=== PATIENT | female | born 1945 | race African-American/Black ===

== ENCOUNTER 2017-01-16 10:01 | Emergency (ER) | payer MEDICARE, OTHER ==
[~2017-01-16] VITALS: Ht 162.6 cm; Wt 65.0 kg
[~2017-01-16 10:01] MED LIST: AMBIEN PO; HYDR-523 PO; LASIX PO
[2017-01-16 10:20] LABS: BASOPHILS % 0.5 % (0.0-2.0); EOSINOPHILS % 0.1 % (0.0-5.0); HEMATOCRIT. 32.2 % (36.0-48.0); HEMOGLOBIN. 10.6 g/dL (12.0-16.0); LYMPHOCYTES % 19.3 % (20.0-50.0); MEAN CORPUSCULAR HEMOGLOBIN 31.1 pg (28.0-32.0); MEAN CORPUSCULAR HGB CONC 32.9 g/dL (31.0-37.0); MEAN CORPUSCULAR VOLUME 94.6 fL (81.0-99.0); MEAN PLATELET VOLUME 8.3 fl (7.4-10.4); MONOCYTES % 8.2 % (2.0-8.0); NEUTROPHILS % 71.9 % (40.0-76.0); PLATELET 147 x1000/uL (130-400); RED CELL DISTRIBUTION WIDTH 19.7 % (11.6-14.6); WHITE BLOOD COUNT 5.4 x1000/uL (4.5-11.0)
[2017-01-16 10:26] LABS: CHLORIDE 100 mEq/L (98-107); INDEX HEMOLYSI 1 (1-3); INDEX ICTERIC 1 (1-4); INDEX LIPEMIC 1 (1-3)
[2017-01-16 10:34] LABS: ALANINE AMINOTRANSFERASE 36 IU/L (13-61); ANION GAP 17; CARBON DIOXIDE 27 mEq/L (21-32); ETHANOL BLOOD < 10 mg/dL; LIPASE 102 IU/L (73-393); UREA NITROGEN BLOOD 7 mg/dL (7-21); eGFR > 60 mL/min (>60)
[2017-01-16] MEDS ORDERED: KETOROLAC 30MG/ML VIAL IV STA (10:50)
[2017-01-16] MEDS ORDERED: SODIUM CHLORIDE 0.9% 1,000 ML IV ONE (10:50)
[2017-01-16 11:12] LABS: CREATINE KINASE 43 IU/L (26-192); INDEX HEMOLYSI 1 (1-3)
[2017-01-16 15:12] VITALS: BP 148/95
== END 2017-01-16 16:11 | disposition home or self-care (01) ==
LOC: ER 10:02
DX: M48.56XA Collapsed vertebra, not elsewhere classified, lumbar region, initial encounter for fracture (principal); I10 Essential (primary) hypertension; Z91.018 Allergy to other foods; W01.0XXA Fall on same level from slipping, tripping and stumbling without subsequent striking against object, initial encounter; Y93.89 Activity, other specified; Y92.89 Other specified places as the place of occurrence of the external cause; Y99.8 Other external cause status
CPT/HCPCS: 36415; 80053; 82550; 83690; 85025; 96374; 99284; G0482; J1885; J7030

== ENCOUNTER 2017-01-28 23:24 | Emergency (ER) | payer MEDICARE, OTHER ==
[~2017-01-28] VITALS: Ht 172.7 cm; Wt 81.0 kg
[2017-01-29] MEDS ORDERED: HYDROCODONE/ACETAMINOPHEN 5/325MG TABLET PO ONE (01:30)
[2017-01-29 05:42] VITALS: BP 148/79
== END 2017-01-29 05:44 | disposition home or self-care (01) ==
LOC: ER 23:52
DX: M84.48XA Pathological fracture, other site, initial encounter for fracture (principal); I10 Essential (primary) hypertension
CPT/HCPCS: 99283

== ENCOUNTER 2017-04-04 00:51 | Inpatient (IN) | payer MEDICARE, OTHER ==
[~2017-04-04] VITALS: Ht 172.7 cm; Wt 66.2 kg
[~2017-04-04 00:51] MED LIST changes: +ASPI-1159 PO
[2017-04-04] MEDS ORDERED: IPRATROPIUM BROMIDE (0.02%) 0.5MG/2.5ML NEB HHN STA (02:54)
[2017-04-04] MEDS ORDERED: ALBUTEROL (0.083%) 2.5MG/3ML NEB HHN STA (02:54)
[2017-04-04] MEDS ORDERED: MORPHINE SULFATE 4 MG/ML CPJ (NOT FOR IM USE) IV STA (02:54)
[2017-04-04] MEDS ORDERED: ONDANSETRON HCL 4MG/2ML VIAL IV STA (02:54)
[2017-04-04] MEDS ORDERED: METHYLPREDNISOLONE SOD SUCC 125 MG/2 ML VIAL IV ONE (03:00)
[2017-04-04 03:19] LABS: BASOPHILS % 0.4 % (0.0-2.0); EOSINOPHILS % 0.1 % (0.0-5.0); HEMATOCRIT. 35.5 % (36.0-48.0); HEMOGLOBIN. 11.4 g/dL (12.0-16.0); LYMPHOCYTES % 13.1 % (20.0-50.0); MEAN CORPUSCULAR HEMOGLOBIN 27.9 pg (28.0-32.0); MEAN CORPUSCULAR VOLUME 86.7 fL (81.0-99.0); MEAN PLATELET VOLUME 8.6 fl (7.4-10.4); MONOCYTES % 3.9 % (2.0-8.0); NEUTROPHILS % 82.5 % (40.0-76.0); PLATELET 138 x1000/uL (130-400); RED CELL DISTRIBUTION WIDTH 16.8 % (11.6-14.6)
[2017-04-04 03:43] LABS: CARBON DIOXIDE 28 mEq/L (21-32); CHLORIDE 94 mEq/L (98-107); TROPONIN I < 0.02 ng/mL (0.00-0.04)
[2017-04-04] MEDS ORDERED: SODIUM CHLORIDE 0.9% 1,000 ML IV ONE (04:09)
[2017-04-04 08:00] VITALS: BP 129/74
[2017-04-04 08:46] VITALS: BP 129/74
[2017-04-04] MEDS ORDERED: CLONIDINE 0.1MG TABLET PO PRN (09:45)
[2017-04-04] MEDS ORDERED: METHYLPREDNISOLONE SOD SUCC 40 MG/ML VIAL IV SCH (09:45)
[2017-04-04] MEDS ORDERED: ONDANSETRON HCL 4MG/2ML VIAL IV PRN (09:45)
[2017-04-04 10:05] LABS: BG BASE EXCESS -5.4 mmol/L (-2.0-2.0); BG CARBOXYHEMOGLOBIN 0.3 % (0.5-1.5); BG DEOXYHEMOGLOBIN 1.9 % (0.0-5.0); BG HCO3 ACT 19.7 mmol/L (22.0-26.0); BG METHEMOGLOBIN 0.4 % (0.0-1.5); BG OXYGEN SATURATION 98.1 % (92.0-98.5); BG OXYHEMOGLOBIN 97.4 % (94.0-97.0); BG PCO2 36.8 mmHg (35.0-45.0); BG PH 7.346 (7.350-7.450); BG PO2 119.7 mmHg (75.0-100.0); BG SAMPLE SITE RIGHT RADIAL; BG TOTAL HEMOGLOBIN 12.5 g/dL (12.0-18.0); BG VENT MODE NASAL CANNULA
[2017-04-04] MEDS: HYDROCODONE/ACETAMINOPHEN 5/325MG TABLET PO PRN ×3 (10:13→21:00)
[2017-04-04] MEDS: ASPIRIN 325MG EC TABLET PO SCH (10:13)
[2017-04-04] MEDS: ENOXAPARIN 40MG/0.4ML SYR SUBCUT SCH (10:14)
[2017-04-04] MEDS: METOPROLOL TARTRATE 50MG TABLET PO SCH ×2 (10:14→20:57)
[2017-04-04 10:37] LABS: HEMATOCRIT. 37.4 % (36.0-48.0); HEMOGLOBIN. 11.8 g/dL (12.0-16.0); MEAN CORPUSCULAR HEMOGLOBIN 27.8 pg (28.0-32.0); MEAN CORPUSCULAR VOLUME 87.8 fL (81.0-99.0); MEAN PLATELET VOLUME 9.2 fl (7.4-10.4); PLATELET 142 x1000/uL (130-400); RED BLOOD CELL COUNT 4.26 mill/uL (4.2-5.4); RED CELL DISTRIBUTION WIDTH 17.4 % (11.6-14.6)
[2017-04-04 11:06] LABS: CARBON DIOXIDE 22 mEq/L (21-32); CHLORIDE 96 mEq/L (98-107); T4 FREE 1.11 ng/dL (0.76-1.46)
[2017-04-04 12:00] VITALS: BP 130/79
[2017-04-04] MEDS: IPRATROPIUM/ALBUTEROL 0.5-3(2.5)MG/3ML NEB INH SCH ×2 (12:14→21:42)
[2017-04-04 12:40] LABS: PLATELET ESTIMATE NORMAL
[2017-04-04] MEDS ORDERED: SODIUM CHLORIDE 0.9% 10ML VIAL ONE (13:24)
[2017-04-04] MEDS ORDERED: IOHEXOL-350 100 ML BOTTLE ONE (13:24)
[2017-04-04] MEDS ORDERED: POTASSIUM CHLORIDE 10MEQ TABLET SR PO NR (14:15)
[2017-04-04] MEDS: PANTOPRAZOLE 40MG DR TABLET PO SCH ×2 (14:20→20:56)
[2017-04-04] MEDS: SODIUM CHLORIDE 0.9% 1,000 ML IV SCH (14:21)
[2017-04-04 14:45] LABS: CREATINE KINASE 76 IU/L (26-192); CREATINE KINASE MB FRACTION 1.7 ng/mL (0.5-3.6); TROPONIN I < 0.02 ng/mL (0.00-0.04)
[2017-04-04] MEDS: LEVOFLOXACIN 500MG PREMIX 100 ML IV SCH (15:38)
[2017-04-04 16:00] VITALS: BP 127/85
[2017-04-04 20:00] VITALS: BP 148/90
[2017-04-04] MEDS: METHYLPREDNISOLONE SOD SUCC 40 MG/ML VIAL IV SCH (20:57)
[2017-04-04 22:16] LABS: CREATINE KINASE 83 IU/L (26-192); CREATINE KINASE MB FRACTION 1.9 ng/mL (0.5-3.6); TROPONIN I < 0.02 ng/mL (0.00-0.04)
[2017-04-05] VITALS: BP 123/83
[2017-04-05] MEDS: ACETAMINOPHEN 325MG TABLET PO PRN ×2 (00:04→15:24)
[2017-04-05] MEDS: TEMAZEPAM 15MG CAPSULE PO PRN ×2 (00:50→23:22)
[2017-04-05] MEDS: HYDROCODONE/ACETAMINOPHEN 5/325MG TABLET PO PRN ×4 (00:51→23:31)
[2017-04-05] MEDS: IPRATROPIUM/ALBUTEROL 0.5-3(2.5)MG/3ML NEB INH SCH ×4 (02:06→21:36)
[2017-04-05 04:00] VITALS: BP 122/73
[2017-04-05 06:12] LABS: HEMATOCRIT. 30.7 % (36.0-48.0); HEMOGLOBIN. 9.8 g/dL (12.0-16.0); MEAN CORPUSCULAR HEMOGLOBIN 27.6 pg (28.0-32.0); MEAN CORPUSCULAR VOLUME 86.9 fL (81.0-99.0); MEAN PLATELET VOLUME 9.7 fl (7.4-10.4); PLATELET 99 x1000/uL (130-400); RED BLOOD CELL COUNT 3.54 mill/uL (4.2-5.4); RED CELL DISTRIBUTION WIDTH 16.8 % (11.6-14.6)
[2017-04-05 06:44] LABS: CARBON DIOXIDE 30 mEq/L (21-32); CHLORIDE 100 mEq/L (98-107); HDL CHOLESTEROL 117 mg/dL (40-59); LDL CHOLESTEROL 45 mg/dL (5-100)
[2017-04-05 07:14] LABS: PLATELET ESTIMATE SLIGHTLY DECREASED
[2017-04-05 08:00] VITALS: BP 119/71
[2017-04-05] MEDS: ASPIRIN 325MG EC TABLET PO SCH (08:49)
[2017-04-05] MEDS: METHYLPREDNISOLONE SOD SUCC 40 MG/ML VIAL IV SCH (08:49)
[2017-04-05] MEDS: ENOXAPARIN 40MG/0.4ML SYR SUBCUT SCH (08:50)
[2017-04-05] MEDS: METOPROLOL TARTRATE 50MG TABLET PO SCH ×2 (08:50→20:51)
[2017-04-05] MEDS: PANTOPRAZOLE 40MG DR TABLET PO SCH (08:50)
[2017-04-05 12:00] VITALS: BP 125/81
[2017-04-05] MEDS: LEVOFLOXACIN 500MG PREMIX 100 ML IV SCH (15:24)
[2017-04-05 16:00] VITALS: BP 121/77
[2017-04-05] MEDS ORDERED: MAGNESIUM HYDROXIDE 400MG/5ML 30ML UDC PO NR (18:15)
[2017-04-05 20:00] VITALS: BP 142/83
[2017-04-05] MEDS: SODIUM CHLORIDE 0.9% 1,000 ML IV SCH (23:22)
[2017-04-06] VITALS: BP 117/64
[2017-04-06] MEDS: IPRATROPIUM/ALBUTEROL 0.5-3(2.5)MG/3ML NEB INH SCH ×2 (01:30→06:00)
[2017-04-06 04:00] VITALS: BP 127/87
[2017-04-06] MEDS: HYDROCODONE/ACETAMINOPHEN 5/325MG TABLET PO PRN ×2 (04:43→10:25)
[2017-04-06 06:21] LABS: BASOPHILS % 0.1 % (0.0-2.0); HEMATOCRIT. 31.1 % (36.0-48.0); HEMOGLOBIN. 9.8 g/dL (12.0-16.0); LYMPHOCYTES % 8.7 % (20.0-50.0); MEAN CORPUSCULAR HEMOGLOBIN 27.6 pg (28.0-32.0); MEAN CORPUSCULAR VOLUME 87.3 fL (81.0-99.0); MONOCYTES % 1.6 % (2.0-8.0); NEUTROPHILS % 89.6 % (40.0-76.0); PLATELET 75 x1000/uL (130-400); RED BLOOD CELL COUNT 3.56 mill/uL (4.2-5.4); RED CELL DISTRIBUTION WIDTH 16.8 % (11.6-14.6)
[2017-04-06 08:00] VITALS: BP 120/70
[2017-04-06] MEDS: METOPROLOL TARTRATE 50MG TABLET PO SCH (08:04)
[2017-04-06] MEDS: ASPIRIN 325MG EC TABLET PO SCH (08:04)
[2017-04-06] MEDS: ENOXAPARIN 40MG/0.4ML SYR SUBCUT SCH (08:05)
[2017-04-06] MEDS ORDERED: FAMOTIDINE 20MG TABLET PO SCH (09:00)
[2017-04-06] MEDS ORDERED: PREDNISONE 5MG TABLET PO SCH (09:00)
[2017-04-06 10:12] VITALS: BP 123/76
[2017-04-06 10:25] VITALS: BP 123/76
== END 2017-04-06 12:05 | disposition home or self-care (01) | DRG 189 ==
LOC: ER 00:51 → 7WST 04:11 → INTOOBSV 04:11 → OBSVTOIN 04:11 → EDBEDREQ 04:13 → EDBEDREQTM 04:13 → ENRESERV 07:00 → CANRESERV 07:00 → ENRESERV 07:22
PROVIDERS: ADMIT Internal Medicine; ATTEND Internal Medicine
DX: J96.90 Respiratory failure, unspecified, unspecified whether with hypoxia or hypercapnia (principal); J44.1 Chronic obstructive pulmonary disease with (acute) exacerbation; J84.89 Other specified interstitial pulmonary diseases; I10 Essential (primary) hypertension; I48.91 Unspecified atrial fibrillation; E04.2 Nontoxic multinodular goiter; K76.0 Fatty (change of) liver, not elsewhere classified; K22.2 Esophageal obstruction; Z87.891 Personal history of nicotine dependence
CPT/HCPCS: 36415; 36600; 71010; 71275; 80048; 80053; 80061; 82375; 82550; 82553; 82805; 83880; 84439; 84443; 84484; 85025; 93005; 93306; 94640; 94664; 96361; 96365; 96366; 96372; 96374; 96375; 96376; 99285; A4216; G0378; J1650; J1956; J2270; J2405; J2920; J2930; J7030; J7512; J7611; J7620; Q9967

== ENCOUNTER 2017-05-02 21:54 | Inpatient (IN) | payer MEDICARE, OTHER ==
[~2017-05-02] VITALS: Ht 172.7 cm; Wt 68.5 kg
[2017-05-02] MEDS ORDERED: METHYLPREDNISOLONE SOD SUCC 125 MG/2 ML VIAL IV STA (22:37)
[2017-05-02] MEDS ORDERED: SODIUM CHLORIDE 0.9% 500 ML IV ONE (22:37)
[2017-05-02] MEDS ORDERED: ONDANSETRON HCL 4MG/2ML VIAL IV STA (22:37)
[2017-05-02] MEDS ORDERED: MORPHINE SULFATE 4 MG/ML CPJ (NOT FOR IM USE) IV STA (22:37)
[2017-05-02] MEDS ORDERED: ASPIRIN 81MG TABLET PO STA (22:37)
[2017-05-02] MEDS ORDERED: IPRATROPIUM/ALBUTEROL 0.5-3(2.5)MG/3ML NEB HHN ONE (22:45)
[2017-05-02] MEDS ORDERED: LEVOFLOXACIN 750MG PREMIX 150 ML IV ONE (22:45)
[2017-05-02 23:09] LABS: BG BASE EXCESS -1.7 mmol/L (-2.0-2.0); BG CARBOXYHEMOGLOBIN 0.4 % (0.5-1.5); BG DEOXYHEMOGLOBIN 6.8 % (0.0-5.0); BG FRACTION INSPIRED OXYGEN 21; BG HCO3 ACT 23.4 mmol/L (22.0-26.0); BG METHEMOGLOBIN 0.4 % (0.0-1.5); BG OXYGEN SATURATION 93.1 % (92.0-98.5); BG OXYHEMOGLOBIN 92.4 % (94.0-97.0); BG PCO2 40.9 mmHg (35.0-45.0); BG PH 7.375 (7.350-7.450); BG PO2 73.6 mmHg (75.0-100.0); BG SAMPLE SITE LEFT RADIAL; BG TOTAL HEMOGLOBIN 11.9 g/dL (12.0-18.0); BG VENT MODE ROOM AIR
[2017-05-02 23:49] LABS: BASOPHILS % 0.1 % (0.0-2.0); HEMATOCRIT. 32.6 % (36.0-48.0); HEMOGLOBIN. 10.6 g/dL (12.0-16.0); LYMPHOCYTES % 8.1 % (20.0-50.0); MEAN CORPUSCULAR HEMOGLOBIN 29.4 pg (28.0-32.0); MEAN CORPUSCULAR VOLUME 89.9 fL (81.0-99.0); MEAN PLATELET VOLUME 9.7 fl (7.4-10.4); MONOCYTES % 2.7 % (2.0-8.0); NEUTROPHILS % 89.1 % (40.0-76.0); RED BLOOD CELL COUNT 3.62 mill/uL (4.2-5.4); RED CELL DISTRIBUTION WIDTH 22.2 % (11.6-14.6)
[2017-05-02 23:58] LABS: INR 1.1; PARTIAL THROMBOPLASTIN TIME 25.8 sec (24.0-34.0); PROTHROMBIN TIME 11.2 sec
[2017-05-03 00:03] LABS: PLATELET 35 x1000/uL (130-400)
[2017-05-03 00:09] LABS: CARBON DIOXIDE 23 mEq/L (21-32); CHLORIDE 96 mEq/L (98-107); CREATINE KINASE 35 IU/L (26-192); TROPONIN I < 0.02 ng/mL (0.00-0.04)
[2017-05-03 00:34] LABS: CLARITY URINE CLEAR (CLEAR); COLOR URINE YELLOW (YELLOW); KETONES URINE NEGATIVE (NEGATIVE); LEUKOCYTE ESTERASE URINE 2+ (NEGATIVE); NITRITE URINE NEGATIVE (NEGATIVE); OCCULT BLOOD URINE TRACE (NEGATIVE); PH URINE 5.5 (4.5-8.0); PROTEIN URINE NEGATIVE (NEGATIVE); UROBILINOGEN URINE 0.2 E.U./dL (0.2-1.0)
[2017-05-03] MEDS ORDERED: LORAZEPAM 2MG/ML CPJ IV ONE (01:00)
[2017-05-03] MEDS ORDERED: SODIUM CHLORIDE 0.9% 1,000 ML IV ONE (01:18)
[2017-05-03] MEDS: METHYLPREDNISOLONE SOD SUCC 40 MG/ML VIAL IV SCH ×3 (06:20→21:09)
[2017-05-03] MEDS: IPRATROPIUM/ALBUTEROL 0.5-3(2.5)MG/3ML NEB HHN SCH ×3 (07:29→21:19)
[2017-05-03] MEDS ORDERED: ENOXAPARIN 40MG/0.4ML SYR SUBCUT SCH (09:00)
[2017-05-03] MEDS: ACETAMINOPHEN 325MG TABLET PO PRN ×2 (09:57→19:50)
[2017-05-03 10:11] LABS: HEMOGLOBIN. 9.5 g/dL (12.0-16.0); MEAN CORPUSCULAR HEMOGLOBIN 29.2 pg (28.0-32.0); MEAN PLATELET VOLUME 10.1 fl (7.4-10.4); RED BLOOD CELL COUNT 3.26 mill/uL (4.2-5.4); RED CELL DISTRIBUTION WIDTH 21.6 % (11.6-14.6)
[2017-05-03 10:26] LABS: PLATELET 29 x1000/uL (130-400)
[2017-05-03 10:38] LABS: CARBON DIOXIDE 21 mEq/L (21-32); CHLORIDE 101 mEq/L (98-107)
[2017-05-03 14:16] LABS: PLATELET ESTIMATE MARKEDLY DECREASED
[2017-05-03] MEDS ORDERED: NITROGLYCERIN 0.4MG TABLET SL SL PRN (15:00)
[2017-05-03] MEDS: ONDANSETRON HCL 4MG/2ML VIAL IV PRN ×2 (16:00→23:35)
[2017-05-03] MEDS: CARVEDILOL 6.25 MG TABLET PO SCH (21:00)
[2017-05-03] MEDS: LEVOFLOXACIN 500MG PREMIX 100 ML IV SCH (21:22)
[2017-05-04] MEDS: ACETAMINOPHEN 325MG TABLET PO PRN ×2 (01:49→23:16)
[2017-05-04] MEDS: IPRATROPIUM/ALBUTEROL 0.5-3(2.5)MG/3ML NEB HHN SCH ×4 (02:46→20:18)
[2017-05-04] MEDS: METHYLPREDNISOLONE SOD SUCC 40 MG/ML VIAL IV SCH ×3 (05:54→21:33)
[2017-05-04 07:16] LABS: HEMATOCRIT. 30.4 % (36.0-48.0); HEMOGLOBIN. 9.8 g/dL (12.0-16.0); MEAN CORPUSCULAR HEMOGLOBIN 29.1 pg (28.0-32.0); MEAN PLATELET VOLUME 10.6 fl (7.4-10.4); RED BLOOD CELL COUNT 3.38 mill/uL (4.2-5.4)
[2017-05-04 07:30] LABS: PLATELET 35 x1000/uL (130-400)
[2017-05-04 08:55] LABS: NUCLEATED RED BLOOD CELLS 1 /100 WBC; PLATELET ESTIMATE MARKEDLY DECREASED
[2017-05-04] MEDS: CARVEDILOL 6.25 MG TABLET PO SCH ×2 (09:13→21:33)
[2017-05-04] MEDS ORDERED: HYDROCODONE/ACETAMINOPHEN 5/325MG TABLET PO NR (10:15)
[2017-05-04 12:10] LABS: T4 FREE 1.27 ng/dL (0.76-1.46)
[2017-05-04 12:25] LABS: HEPATITIS B SURFACE ANTIGEN NEGATIVE
[2017-05-04 12:53] LABS: HEPATITIS B CORE AB IGM NEGATIVE
[2017-05-04 12:54] LABS: HEPATITIS A AB IGM NEGATIVE (NEGATIVE)
[2017-05-04] MEDS ORDERED: LACTULOSE 20G/30ML UDC PO PRN (21:00)
[2017-05-04] MEDS: LORAZEPAM 0.5MG TABLET PO PRN (21:33)
[2017-05-04] MEDS: LEVOFLOXACIN 500MG PREMIX 100 ML IV SCH (21:36)
[2017-05-05] MEDS: IPRATROPIUM/ALBUTEROL 0.5-3(2.5)MG/3ML NEB HHN SCH ×4 (02:32→21:09)
[2017-05-05] MEDS: METHYLPREDNISOLONE SOD SUCC 40 MG/ML VIAL IV SCH ×3 (06:06→22:26)
[2017-05-05 07:08] LABS: HEMATOCRIT. 28.7 % (36.0-48.0); HEMOGLOBIN. 9.6 g/dL (12.0-16.0); MEAN CORPUSCULAR HEMOGLOBIN 29.7 pg (28.0-32.0); MEAN CORPUSCULAR VOLUME 88.7 fL (81.0-99.0); MEAN PLATELET VOLUME 10.2 fl (7.4-10.4); RED BLOOD CELL COUNT 3.23 mill/uL (4.2-5.4); RED CELL DISTRIBUTION WIDTH 22.5 % (11.6-14.6)
[2017-05-05 07:37] LABS: PLATELET 31 x1000/uL (130-400)
[2017-05-05] MEDS: CARVEDILOL 6.25 MG TABLET PO SCH ×2 (08:06→21:11)
[2017-05-05 09:39] LABS: CARBON DIOXIDE 29 mEq/L (21-32); CHLORIDE 97 mEq/L (98-107)
[2017-05-05] MEDS: ACETAMINOPHEN 325MG TABLET PO PRN ×3 (09:39→22:24)
[2017-05-05] MEDS ORDERED: IOHEXOL-350 100 ML BOTTLE ONE (13:56)
[2017-05-05] MEDS ORDERED: SODIUM CHLORIDE 0.9% 10ML VIAL ONE (13:56)
[2017-05-05] MEDS ORDERED: LEVOFLOXACIN 500MG TABLET PO SCH (21:00)
[2017-05-05] MEDS: LORAZEPAM 0.5MG TABLET PO PRN (21:16)
[2017-05-05 22:51] LABS: PLATELET ESTIMATE MARKEDLY DECREASED
[2017-05-06] MEDS: IPRATROPIUM/ALBUTEROL 0.5-3(2.5)MG/3ML NEB HHN SCH ×3 (00:43→14:03)
[2017-05-06] MEDS: METHYLPREDNISOLONE SOD SUCC 40 MG/ML VIAL IV SCH ×2 (05:38→13:30)
[2017-05-06] MEDS: ACETAMINOPHEN 325MG TABLET PO PRN ×2 (05:38→13:34)
[2017-05-06] MEDS: CARVEDILOL 6.25 MG TABLET PO SCH (08:22)
[2017-05-06 10:04] LABS: HEMOGLOBIN. 9.7 g/dL (12.0-16.0); MEAN CORPUSCULAR VOLUME 89.5 fL (81.0-99.0); MEAN PLATELET VOLUME 10.7 fl (7.4-10.4); RED BLOOD CELL COUNT 3.35 mill/uL (4.2-5.4); RED CELL DISTRIBUTION WIDTH 23.1 % (11.6-14.6)
[2017-05-06 12:29] VITALS: BP 123/73
[2017-05-06 13:06] LABS: PLATELET ESTIMATE MARKEDLY DECREASED
[2017-05-06 13:07] LABS: PLATELET 41 x1000/uL (130-400)
[2017-05-07 13:07] LABS: ANTI-NUCLEAR ANTIBODIES DIRECT Negative (Negative)
[2017-05-08 08:19] LABS: DRVVT LA 32.5 sec (0.0-47.0); LUPUS ANTICOAG INTERPRETATION Comment: (.)
[2017-05-08 17:07] LABS: HLA CLASS 1 ANTIBODY Positive (Negative); IIb/IIIa ANTIBODY Negative (Negative); Ia/IIa ANTIBODY Negative (Negative); Ib/IX ANTIBODY Negative (Negative)
[2017-05-11 13:07] LABS: METHYLMALONIC ACID 146 nmol/L (0-378)
== END 2017-05-06 15:49 | disposition home or self-care (01) | DRG 189 ==
LOC: ER 22:24 → 8WST 05-03 00:38 → EDBEDREQTM 05-03 00:50 → EDBEDREQ 05-03 00:50 → ENRESERV 05-03 01:57
PROVIDERS: ADMIT Internal Medicine; ATTEND Internal Medicine
PROC: B548ZZA Ultrasonography of Superior Vena Cava, Guidance (ICD-10-PCS; principal; 2017-05-05)
PROC: 02HV33Z Insertion of Infusion Device into Superior Vena Cava, Percutaneous Approach (ICD-10-PCS; 2017-05-05)
PROC: B5181ZA Fluoroscopy of Superior Vena Cava using Low Osmolar Contrast, Guidance (ICD-10-PCS; 2017-05-05)
DX: J96.01 Acute respiratory failure with hypoxia (principal); J44.1 Chronic obstructive pulmonary disease with (acute) exacerbation; D69.3 Immune thrombocytopenic purpura; N39.0 Urinary tract infection, site not specified; R65.10 Systemic inflammatory response syndrome (SIRS) of non-infectious origin without acute organ dysfunction; D69.6 Thrombocytopenia, unspecified; D75.89 Other specified diseases of blood and blood-forming organs; G89.29 Other chronic pain; I11.0 Hypertensive heart disease with heart failure; I48.91 Unspecified atrial fibrillation; I50.9 Heart failure, unspecified; M54.5 Low back pain; Z91.018 Allergy to other foods; Z79.82 Long term (current) use of aspirin; Z79.1 Long term (current) use of non-steroidal anti-inflammatories (NSAID)
CPT/HCPCS: 36415; 36569; 36600; 71010; 71275; 76705; 76937; 77001; 80048; 80053; 81001; 82375; 82550; 82805; 83605; 83690; 83880; 83921; 84439; 84443; 84484; 85025; 85610; 85613; 85730; 85732; 86022; 86038; 86705; 86709; 86803; 87040; 87340; 93005; 94640; 96365; 96375; 99291; A4216; C1725; C1893; J1956; J2060; J2270; J2405; J2920; J2930; J7030; J7040; J7050; J7620; Q9967

== ENCOUNTER 2017-06-15 18:14 | Inpatient (IN) | payer MEDICARE, MEDICAID ==
[~2017-06-15] VITALS: Ht 172.7 cm; Wt 66.0 kg
[2017-06-15] MEDS ORDERED: MORPHINE SULFATE 4 MG/ML CPJ (NOT FOR IM USE) IV STA (19:26)
[2017-06-15] MEDS ORDERED: ONDANSETRON HCL 4MG/2ML VIAL IV STA (19:26)
[2017-06-15 19:50] LABS: CHLORIDE 94 mEq/L (98-107)
[2017-06-15 19:51] LABS: BASOPHILS % 0.7 % (0.0-2.0); EOSINOPHILS % 0.7 % (0.0-5.0); HEMATOCRIT. 34.3 % (36.0-48.0); HEMOGLOBIN. 11.2 g/dL (12.0-16.0); LYMPHOCYTES % 13.6 % (20.0-50.0); MEAN CORPUSCULAR HEMOGLOBIN 28.5 pg (28.0-32.0); MEAN CORPUSCULAR VOLUME 87.7 fL (81.0-99.0); MEAN PLATELET VOLUME 8.9 fl (7.4-10.4); MONOCYTES % 9.2 % (2.0-8.0); NEUTROPHILS % 75.8 % (40.0-76.0); PLATELET 256 x1000/uL (130-400); RED BLOOD CELL COUNT 3.91 mill/uL (4.2-5.4); RED CELL DISTRIBUTION WIDTH 25.9 % (11.6-14.6)
[2017-06-15 19:55] LABS: INR 1.1
[2017-06-15 19:58] LABS: CARBON DIOXIDE 28 mEq/L (21-32)
[2017-06-15 20:13] LABS: PLATELET ESTIMATE NORMAL
[2017-06-16] MEDS ORDERED: MORPHINE SULFATE 4 MG/ML CPJ (NOT FOR IM USE) IV ONE
[2017-06-16 01:06] LABS: CLARITY URINE CLOUDY (CLEAR); COLOR URINE YELLOW (YELLOW); GLUCOSE URINE NEGATIVE (NEGATIVE); KETONES URINE NEGATIVE (NEGATIVE); LEUKOCYTE ESTERASE URINE 2+ (NEGATIVE); NITRITE URINE NEGATIVE (NEGATIVE); OCCULT BLOOD URINE TRACE (NEGATIVE); PH URINE 6.5 (4.5-8.0); PROTEIN URINE NEGATIVE (NEGATIVE); SPECIFIC GRAVITY URINE 1.007 (1.005-1.030)
[2017-06-16 02:00] VITALS: BP 109/50
[2017-06-16] MEDS ORDERED: CEFTRIAXONE 1 G PREMIX 50 ML IV ONE (02:15)
[2017-06-16] MEDS ORDERED: ONDANSETRON HCL 4MG/2ML VIAL IV PRN ×2 (03:30→09:30)
[2017-06-16] MEDS: MORPHINE SULFATE 2 MG/ML CPJ (NOT FOR IM USE) IV PRN ×2 (05:53→09:53)
[2017-06-16 08:00] VITALS: BP 121/70
[2017-06-16 08:25] VITALS: BP 121/70
[2017-06-16] MEDS ORDERED: PANTOPRAZOLE SODIUM 40 MG/VIAL IV SCH (09:00)
[2017-06-16] MEDS ORDERED: MORPHINE SULFATE 2 MG/ML CPJ (NOT FOR IM USE) IV PRN (09:30)
[2017-06-16] MEDS: FAMOTIDINE 20MG/2ML VIAL IV SCH ×2 (09:51→21:13)
[2017-06-16] MEDS: DEXT 5%/0.9% NACL 1,000 ML IV SCH (09:51)
[2017-06-16] MEDS: LEVOFLOXACIN 500MG PREMIX 100 ML IV SCH (10:13)
[2017-06-16] MEDS ORDERED: THIAMINE HCL 100 MG in SODIUM CHLORIDE 0.9% 49 ML IV SCH (15:00)
[2017-06-16 15:34] VITALS: BP 120/63
[2017-06-16] MEDS: ACETAMINOPHEN 325MG TABLET PO PRN (21:00)
[2017-06-17] VITALS: BP 113/69
[2017-06-17] MEDS: DEXT 5%/0.9% NACL 1,000 ML IV SCH ×3 (03:04→19:30)
[2017-06-17] MEDS: ACETAMINOPHEN 325MG TABLET PO PRN ×4 (03:11→21:11)
[2017-06-17 04:00] VITALS: BP 111/54
[2017-06-17 08:00] VITALS: BP 108/66
[2017-06-17] MEDS: LEVOFLOXACIN 500MG PREMIX 100 ML IV SCH (08:19)
[2017-06-17] MEDS: FAMOTIDINE 20MG/2ML VIAL IV SCH ×2 (08:19→21:11)
[2017-06-17 12:00] VITALS: BP 128/76
[2017-06-17 16:00] VITALS: BP 121/74
[2017-06-17 20:00] VITALS: BP 128/73
[2017-06-18] VITALS: BP 114/68
[2017-06-18] MEDS: ACETAMINOPHEN 325MG TABLET PO PRN ×2 (03:24→09:36)
[2017-06-18 04:00] VITALS: BP 105/59
[2017-06-18 08:00] VITALS: BP 135/60
[2017-06-18] MEDS: FAMOTIDINE 20MG/2ML VIAL IV SCH ×2 (08:55→21:41)
[2017-06-18] MEDS: DEXT 5%/0.9% NACL 1,000 ML IV SCH ×2 (08:57→21:41)
[2017-06-18 12:00] VITALS: BP 127/77
[2017-06-18] MEDS: LEVOFLOXACIN 500MG PREMIX 100 ML IV SCH (12:29)
[2017-06-18] MEDS: HYDROCODONE/ACETAMINOPHEN 5/325MG TABLET PO PRN ×2 (15:58→21:45)
[2017-06-18 16:00] VITALS: BP 102/58
[2017-06-18 20:00] VITALS: BP 136/80
[2017-06-18] MEDS ORDERED: MAGNESIUM HYDROXIDE 400MG/5ML 30ML UDC PO PRN (20:00)
[2017-06-19] VITALS: BP 120/84
[2017-06-19 04:00] VITALS: BP 122/76
[2017-06-19] MEDS: HYDROCODONE/ACETAMINOPHEN 5/325MG TABLET PO PRN ×4 (04:00→21:53)
[2017-06-19 08:00] VITALS: BP 119/75
[2017-06-19] MEDS: FAMOTIDINE 20MG/2ML VIAL IV SCH ×2 (08:29→20:25)
[2017-06-19] MEDS: LEVOFLOXACIN 500MG PREMIX 100 ML IV SCH ×2 (08:31→20:23)
[2017-06-19 12:00] VITALS: BP 147/69
[2017-06-19] MEDS: DEXT 5%/0.9% NACL 1,000 ML IV SCH ×2 (12:27→20:24)
[2017-06-19 16:00] VITALS: BP 106/66
[2017-06-19 20:00] VITALS: BP 107/65
[2017-06-20] VITALS: BP 126/77
[2017-06-20] MEDS: DEXT 5%/0.9% NACL 1,000 ML IV SCH ×2 (02:35→02:45)
[2017-06-20 04:00] VITALS: BP 103/55
[2017-06-20] MEDS: HYDROCODONE/ACETAMINOPHEN 5/325MG TABLET PO PRN ×2 (04:15→11:57)
[2017-06-20 08:00] VITALS: BP 161/95
[2017-06-20] MEDS: FAMOTIDINE 20MG/2ML VIAL IV SCH (08:58)
[2017-06-20 09:00] VITALS: BP 115/70
[2017-06-20] MEDS: LEVOFLOXACIN 500MG PREMIX 100 ML IV SCH (10:53)
[2017-06-20 12:00] VITALS: BP 129/77
[2017-06-20 12:24] VITALS: BP 129/77
== END 2017-06-20 13:20 | disposition hospice, inpatient (51) | DRG 391 ==
LOC: ER 18:31 → 7WST 06-16 00:56 → INTOOBSV 06-16 00:56 → OBSVTOIN 06-16 00:56 → CANRESERV 06-16 01:54 → ENRESERV 06-16 01:54 → EDBEDREQSVC 06-16 03:48 → ENRESERV 06-16 07:00
PROVIDERS: ADMIT Internal Medicine; ATTEND Internal Medicine
DX: K29.70 Gastritis, unspecified, without bleeding (principal); E43 Unspecified severe protein-calorie malnutrition; Z99.81 Dependence on supplemental oxygen; N39.0 Urinary tract infection, site not specified; I48.91 Unspecified atrial fibrillation; J44.9 Chronic obstructive pulmonary disease, unspecified; I47.1 Supraventricular tachycardia; E87.1 Hypo-osmolality and hyponatremia; F10.10 Alcohol abuse, uncomplicated; I10 Essential (primary) hypertension; Z60.2 Problems related to living alone; K30 Functional dyspepsia; Y90.9 Presence of alcohol in blood, level not specified; K59.00 Constipation, unspecified; M54.5 Low back pain; Z91.018 Allergy to other foods; Z79.82 Long term (current) use of aspirin; Z88.8 Allergy status to other drugs, medicaments and biological substances; Z79.899 Other long term (current) drug therapy; Z68.22 Body mass index [BMI] 22.0-22.9, adult
CPT/HCPCS: 36415; 74176; 80053; 81001; 83690; 85025; 85610; 93005; 93971; 96365; 96375; 96376; 97110; 97116; 97162; 99285; G0378; J0696; J1956; J2270; J2405; J3411; J3490; J7042

== ENCOUNTER 2019-10-03 01:25 | Emergency (ER) | payer MEDICARE, OTHER ==
[~2019-10-03] VITALS: Ht 165.1 cm; Wt 74.0 kg
[~2019-10-03 01:25] MED LIST changes: -ASPI-1159 PO; +ASPI-1393 PO
[2019-10-03] MEDS ORDERED: ONDANSETRON HCL 4MG/2ML INJ IV STA (02:13)
[2019-10-03] MEDS ORDERED: MORPHINE SULFATE 4 MG/ML CPJ (NOT FOR IM USE) IV STA (02:13)
[2019-10-03] MEDS ORDERED: SODIUM CHLORIDE 0.9% 1,000 ML IV ONE (02:13)
[2019-10-03 02:57] LABS: BASOPHILS % 0.3 % (0.0-2.0); EOSINOPHILS % 0.9 % (0.0-5.0); HEMATOCRIT. 46.4 % (36.0-48.0); HEMOGLOBIN. 15.2 g/dL (12.0-16.0); MEAN CORPUSCULAR HEMOGLOBIN 27.5 pg (28.0-32.0); MEAN CORPUSCULAR VOLUME 83.8 fL (81.0-99.0); MEAN PLATELET VOLUME 9.7 fl (7.4-10.4); NEUTROPHILS % 61.8 % (40.0-76.0); PLATELET 203 x1000/uL (130-400); RED BLOOD CELL COUNT 5.53 mill/uL (4.2-5.4); RED CELL DISTRIBUTION WIDTH 14.6 % (11.6-14.6)
[2019-10-03 03:01] LABS: CLARITY URINE CLEAR (CLEAR); COLOR URINE YELLOW (YELLOW); KETONES URINE NEGATIVE (NEGATIVE); LEUKOCYTE ESTERASE URINE NEGATIVE (NEGATIVE); NITRITE URINE NEGATIVE (NEGATIVE); OCCULT BLOOD URINE 1+ (NEGATIVE); PH URINE 6.5 (4.5-8.0); PROTEIN URINE NEGATIVE (NEGATIVE); SPECIFIC GRAVITY URINE 1.009 (1.005-1.030); UROBILINOGEN URINE 0.2 E.U./dL (0.2-1.0)
[2019-10-03 03:09] LABS: CHLORIDE 104 mEq/L (98-107)
[2019-10-03] MEDS ORDERED: IOHEXOL-300 100 ML BOTTLE ONE (04:31)
[2019-10-03] MEDS ORDERED: CEFTRIAXONE 1 G PREMIX 50 ML IV ONE (06:00)
[2019-10-03] MEDS ORDERED: MORPHINE SULFATE 4 MG/ML CPJ (NOT FOR IM USE) IV ONE (06:15)
[2019-10-03 08:28] VITALS: BP 132/72
== END 2019-10-03 08:44 | disposition short-term general hospital (02) ==
LOC: ER 01:25 → CANBEDREQ 14:38
DX: N39.0 Urinary tract infection, site not specified (principal); J44.9 Chronic obstructive pulmonary disease, unspecified; I10 Essential (primary) hypertension; F17.290 Nicotine dependence, other tobacco product, uncomplicated; Z98.890 Other specified postprocedural states
CPT/HCPCS: 36415; 71045; 74177; 80053; 81003; 83605; 83690; 84484; 85025; 86850; 86900; 86901; 93005; 96365; 96375; 96376; 99285; 99406; J0696; J2270; J2405; J7030; Q9967